=== PATIENT | male | born 1945 | race Caucasian/White ===

== ENCOUNTER → 2017-02-12 | Outpatient (CLI) | payer MEDICARE ==
[~2017-02-12] MED LIST: AMLO10TA82 PO; ASP325TEC PO; ATR20T PO; CHOL200025 PO; IBUP-30 PO; LEVO100C2 PO; MV-M1TAB3 PO; NFNEB10T PO; SILD25TA PO; TOLTA4 PO; UBID100C17 PO; VITA-198 PO
--- NOTE | 2017-02-12 15:14 | Diagnostic Imaging Report ---
INDICATION: Right hip pain. History of arthritis. COMPARISON: None. FINDINGS: AP view of the pelvis and two dedicated radiographic views of the right hip were obtained. There is no fracture, dislocation, bone destruction, or radiopaque foreign body. The visualized pelvic osseous structures and the SI joints demonstrate no acute fracture or dislocation. There is no bone destruction or radiopaque foreign body. The surrounding soft tissue structures are unremarkable. IMPRESSION: 1. Unremarkable radiographic exam of the pelvis and right hip. Dictated by: Dictated on workstation # [id number]
== END ==
LOC: RAD 14:20
PROVIDERS: ATTEND Family Medicine
DX: M25.551 Pain in right hip (principal)

== ENCOUNTER 2017-03-29 11:23 | Outpatient (RCR) | payer MEDICARE | END 2017-04-29 14:41 | disposition home or self-care (01) | PROVIDERS: ATTEND Family Medicine | DX: M62.838 Other muscle spasm (principal); Z98.890 Other specified postprocedural states ==

== ENCOUNTER → 2018-09-23 | Outpatient (CLI) | payer MEDICARE ==
--- NOTE | 2018-09-23 12:25 | Diagnostic Imaging Report ---
PROCEDURE: MRI lumbar spine. TECHNIQUE: Multiplanar, multisequence MRI of the lumbar spine was performed without contrast. INDICATION: Low back pain and sacral pain. Patient is status post lumbar spine surgery approximately 13 years ago. COMPARISON: Correlation is made with prior MRI of the lumbar spine from 09/22/2011. FINDINGS: Curvature of the lumbar spine is normal. There is minimal retrolisthesis of L5 on S1. The vertebral body heights are maintained. No acute compression fracture is seen. Marrow signal intensity appears to be stable. A rounded area of low signal intensity in L2 vertebral bodies is similar to prior exam. There is some mild generalized disc desiccation. Disc space narrowing at L5-S1 level is also seen, compatible with degenerative change. The conus is unremarkable at the L1 level. T12-L1: Central canal is widely patent. Neuroforamina are patent. L1-L2: Central canal is patent. Neuroforamina are patent. L2-L3: There is some ligamentous thickening. Central canal is widely patent. Neuroforamina are patent. L3-L4: There is ligamentous thickening but central canal is widely patent. Neuroforamina are patent. L4-L5: There is mild ligamentous thickening but central canal remains widely patent. There is mild bilateral neuroforaminal narrowing due to broad-based disc/osteophyte complex. L5-S1: Disc/osteophyte complex indents the ventral thecal sac. Central canal remains patent. There is moderate bilateral neuroforaminal narrowing due to broad-based disc/osteophyte complex. Previously noted probable disc extrusion on the right at this level is no longer visualized. Paraspinous tissues demonstrate a left renal cyst measuring 3.4 cm in size. IMPRESSION: Multilevel lumbar spondylosis. No central canal stenosis is seen. There is bilateral neuroforaminal narrowing at L5-S1, as described. No acute compression fracture is detected. Dictated by: Dictated on workstation # [id number]
== END ==
LOC: RAD 10:13
PROVIDERS: ATTEND Family Medicine
DX: M48.07 Spinal stenosis, lumbosacral region (principal); M47.816 Spondylosis without myelopathy or radiculopathy, lumbar region; R53.1 Weakness
CPT/HCPCS: 72148

== ENCOUNTER → 2019-03-15 | Outpatient (CLI) | payer MEDICARE ==
--- NOTE | 2019-03-15 10:28 | Diagnostic Imaging Report ---
PROCEDURE: US Gallbladder. TECHNIQUE: Multiple real-time grayscale images were obtained over the right upper quadrant in various projections. INDICATION: Right upper quadrant pain. FINDINGS: There is increased echogenicity of the liver, compatible with fatty infiltration. There is no obvious intrahepatic biliary ductal dilatation. Common bile duct is however obscured. There is no cholelithiasis or gallbladder wall thickening. There is some questionable trace pericholecystic fluid anterior to the gallbladder wall. The visualized portions of the pancreas are unremarkable. There are multiple cysts in the right kidney, largest measuring 4.2 cm. There is no ascites. IMPRESSION: 1. Fatty infiltration of the liver. 2. Questionable nonspecific pericholecystic fluid. 3. Right renal cysts. Dictated by: Dictated on workstation # [id number]
== END ==
LOC: RAD 09:08
PROVIDERS: ATTEND Nurse Practitioner Family
DX: N28.1 Cyst of kidney, acquired (principal); K76.0 Fatty (change of) liver, not elsewhere classified; R19.7 Diarrhea, unspecified
CPT/HCPCS: 76705

== ENCOUNTER 2019-03-18 21:15 | Observation (INO) | payer MEDICARE ==
[~2019-03-18] VITALS: Ht 172.7 cm; Wt 100.0 kg
--- NOTE | 2019-03-18 21:45 | NUR ---
RAMILA FRANKLIN admitted to room 421-1, with an admitting diagnosis of DEHYDRATION/NAUSEA/VOMITING, on 03/18/19 from DIRECT ADMIT FROM HOME via EMS, accompanied by EMT AND FAMILY.RAMILA FRANKLIN introduced to surroundings, call light, bed controls, phone, TV, temperature control, lights, meal times, smoking policy, visitor policy, side rail policy, bathrooms and showers.
[2019-03-18] MEDS ORDERED: LACTATED RINGERS 1,000 ML IV SCH (22:15)
[2019-03-18] MEDS ORDERED: PROMETHAZINE INJ 25 MG/ML (PHENERGAN) AMP IVP PRN (22:15)
--- NOTE | 2019-03-18 22:38 | NUR ---
PATIENT TO XRAY, ADMITTING PHYSICIAN REQUESTED THAT IT BE SENT TO [facility] TO BE READ
[2019-03-18] MEDS ORDERED: LIDOCAINE 4% (SALONPAS) PATCH ONE (22:39)
[2019-03-18] MEDS ORDERED: fentaNYL INJECTION 100 MCG/2 ML AMP IVP PRN (22:45)
[2019-03-18] MEDS: ONDANSETRON 4 MG/2 ML (SDV) Z0FRAN IVP PRN (22:47)
[2019-03-18 22:49] VITALS: BP 144/63
[2019-03-18] MEDS: LACTATED RINGERS 1,000 ML IV SCH (22:49)
[2019-03-18] MEDS: LIDOCAINE 4% (SALONPAS) PATCH TOP SCH (22:50)
[2019-03-18] MEDS ORDERED: LORazepam INJ 2 MG/ML (ATIVAN) VIAL IVP PRN (23:15)
[2019-03-18 23:47] LABS: BASOPHILS % (AUTO) 0 % (0-10); EOSINOPHILS % (AUTO) 0 % (0-10); HEMATOCRIT 42 % (40-54); HEMOGLOBIN 14.4 G/DL (13.3-17.7); LYMPHOCYTES # (AUTO) 0.6 X 10^3 (1.0-4.0); LYMPHOCYTES % (AUTO) 6 % (12-44); MEAN CORPUSCULAR HEMOGLOBIN 31 PG (25-34); MEAN CORPUSCULAR HGB CONC 35 G/DL (32-36); MEAN CORPUSCULAR VOLUME 89 FL (80-99); MEAN PLATELET VOLUME 10.1 FL (7.4-10.4); MONOCYTES # (AUTO) 0.5 X 10^3 (0.0-1.0); MONOCYTES % (AUTO) 5 % (0-12); NEUTROPHILS # (AUTO) 8.8 X 10^3 (1.8-7.8); NEUTROPHILS % (AUTO) 88 % (42-75); PLATELET COUNT 224 10^3/uL (130-400); RED CELL DISTRIBUTION WIDTH 13.4 % (10.0-14.5); WHITE BLOOD COUNT 10.1 10^3/uL (4.3-11.0)
[2019-03-18] MEDS: HYDROcodone/APAP 5 MG/325 MG (LORTAB) TAB PO PRN (23:47)
[2019-03-18] MEDS: MELATONIN 3 MG TABLET PO SCH (23:48)
[2019-03-19] VITALS: BP 131/74
[2019-03-19 00:01] LABS: ALBUMIN 4.1 GM/DL (3.2-4.5); BILIRUBIN,TOTAL 0.6 MG/DL (0.1-1.0); CALCIUM 9.4 MG/DL (8.5-10.1); CREATININE SERUM 1.3 MG/DL (0.60-1.30); POTASSIUM 4.1 MMOL/L (3.6-5.0); TOTAL PROTEIN 6.7 GM/DL (6.4-8.2)
[2019-03-19 00:12] LABS: BAND NEUTROPHILS 5 %; LYMPHOCYTES % (MANUAL) 5 %; MONOCYTES % (MANUAL) 5 %; NEUTROPHILS % (MANUAL) 85 %
[2019-03-19 00:13] LABS: RBC MORPH NORMAL
[2019-03-19 02:55] LABS: BILIRUBIN,URINE NEGATIVE (NEGATIVE); CLARITY,URINE CLEAR; COLOR,URINE YELLOW; GLUCOSE, URINE (UA) NEGATIVE (NEGATIVE); KETONES,URINE NEGATIVE (NEGATIVE); LEUKOCYTE ESTERASE ,URINE NEGATIVE (NEGATIVE); NITRITE,URINE NEGATIVE (NEGATIVE); PROTEIN,URINE TRACE (NEGATIVE)
[2019-03-19 03:03] LABS: BACTERIA,URINE NEGATIVE /HPF; SQUAMOUS EPITHELIAL CELL,UR 0-2 /HPF; WBC,URINE 0-2 /HPF
[2019-03-19 04:00] VITALS: BP 144/75
[2019-03-19] MEDS: LACTATED RINGERS 1,000 ML IV SCH ×3 (04:50→17:31)
--- NOTE | 2019-03-19 05:39 | Diagnostic Imaging Report ---
INDICATION: Nausea and vomiting. Dizziness. COMPARISON: 02/12/2017 FINDINGS: Supine and upright views of the abdomen show a nondistended bowel gas pattern. No abnormal air fluid levels or free intraperitoneal air is seen. Extraosseous calcifications are seen projecting over the bilateral kidneys. Largest is seen within the superior pole on the left and measures 7 to 8 mm in diameter. Bony and soft tissue structures are within normal limits. No organomegaly is identified. Accompanying upright chest shows normal heart size and pulmonary vascularity. The lungs are well aerated and clear. The mediastinum is normal in appearance. IMPRESSION: 1. No bowel obstruction or free air. 2. Normal chest. No pneumonia or pulmonary edema. 3. Bilateral nephrolithiasis. Dictated by: Dictated on workstation # [id number]
[2019-03-19 06:05] LABS: BASOPHILS % (AUTO) 0 % (0-10); EOSINOPHILS # (AUTO) 0.1 10^3/uL (0.0-0.3); EOSINOPHILS % (AUTO) 1 % (0-10); HEMATOCRIT 38 % (40-54); HEMOGLOBIN 12.8 G/DL (13.3-17.7); LYMPHOCYTES # (AUTO) 0.8 X 10^3 (1.0-4.0); LYMPHOCYTES % (AUTO) 11 % (12-44); MEAN CORPUSCULAR HEMOGLOBIN 30 PG (25-34); MEAN CORPUSCULAR HGB CONC 34 G/DL (32-36); MEAN CORPUSCULAR VOLUME 90 FL (80-99); MEAN PLATELET VOLUME 10.1 FL (7.4-10.4); MONOCYTES # (AUTO) 0.7 X 10^3 (0.0-1.0); MONOCYTES % (AUTO) 9 % (0-12); NEUTROPHILS # (AUTO) 6.2 X 10^3 (1.8-7.8); NEUTROPHILS % (AUTO) 79 % (42-75); PLATELET COUNT 200 10^3/uL (130-400); RED CELL DISTRIBUTION WIDTH 13.1 % (10.0-14.5); WHITE BLOOD COUNT 7.8 10^3/uL (4.3-11.0)
[2019-03-19 06:24] LABS: ALANINE AMINOTRANSFERASE 32 U/L (0-55); ALBUMIN 3.8 GM/DL (3.2-4.5); ALKALINE PHOSPHATASE 48 U/L (40-136); BILIRUBIN,TOTAL 0.6 MG/DL (0.1-1.0); BUN/CREATININE RATIO 20; CALCIUM 9.2 MG/DL (8.5-10.1); CARBON DIOXIDE 24 MMOL/L (21-32); CHLORIDE 105 MMOL/L (98-107); CREATININE SERUM 1.12 MG/DL (0.60-1.30); GFR ESTIMATED > 60; GLUCOSE 118 MG/DL (70-105); POTASSIUM 3.9 MMOL/L (3.6-5.0); SODIUM 140 MMOL/L (135-145); TOTAL PROTEIN 6.1 GM/DL (6.4-8.2)
[2019-03-19] MEDS: ONDANSETRON 4 MG/2 ML (SDV) Z0FRAN IVP PRN (06:43)
[2019-03-19] MEDS ORDERED: FLU QUADRIvalent (5+ YOA) 2019-2020 (AFLURIA) 0.5 ML IM ONE (07:00)
[2019-03-19 08:00] VITALS: BP 130/63
--- NOTE | 2019-03-19 08:10 | NUR ---
DR. FINCH CALLED IN RE: SALONPAS VS. VOLTAREN GEL. VOLTAREN GEL STARTED AT THIS TIME. SALONPAS DISCONTINUED BY THIS RN PER DR. FINCH.
[2019-03-19] MEDS: PANTOPRAZOLE 40 MG (PROTONIX) VIAL IV SCH ×2 (08:26→23:04)
[2019-03-19] MEDS: CHOLESTYRAMINE 4 GM (QUESTRAN LITE, PREVALITE) PKT PO SCH ×2 (08:26→23:28)
[2019-03-19] MEDS: LIDOCAINE 4% (SALONPAS) PATCH TOP SCH (08:29)
[2019-03-19] MEDS: DICLOFENAC 1% GEL 100 GM (VOLTAREN) TUBE TOP SCH ×4 (09:14→23:28)
--- NOTE | 2019-03-19 10:44 | HISTORY AND PHYSICAL ---
DATE OF SERVICE: ATTENDING PRIMARY CARE PHYSICIAN: Carol Sepulveda MD. HISTORY OF PRESENT ILLNESS: The patient is a 73-year-old male who was admitted for persistent nausea, vomiting, diarrhea and dehydration. This has been occurring for the past few weeks; however, became more severe in the past 4 to 5 days. On the day of admission, he did have several bouts of nausea and vomiting as well as diarrhea to the point where he felt weak and was clinically dehydrated. He was brought by EMS to the floor where his lab work was consistent with prerenal azotemia. His vital signs are stable. He reports that he has had issues with this nausea and vomiting for some time; however, this has worsened. He feels that the diarrhea has also been around for quite some time; however, he thought that this was medication related. He does not report any hematemesis, no coffee ground emesis. He also does not report any red blood per rectum nor any dark tarry stools. PAST MEDICAL HISTORY: Hypertension, syncopal episodes, urinary incontinence, degenerative joint disease. PAST SURGICAL HISTORY: Cervical spine open reduction and internal fixation in 2016 and lipoma excision right neck. ALLERGIES: No known drug allergies. MEDICATIONS: Aspirin 325 mg daily, amlodipine 10 mg daily, atorvastatin 20 mg daily, levothyroxine 100 mcg daily, tolterodine 4 mg daily. SOCIAL HISTORY: Negative smoke, negative alcohol. FAMILY HISTORY: Mother, ovarian cancer. Vital Signs: Temperature 36.9, blood pressure 130/63, pulse 70, respirations 18, pulse ox 93% on room air. REVIEW OF SYSTEMS: Well-nourished male in no acute distress. He does feel weak and does have some ataxia that he reports has been present since cervical spine surgery. Intermittent episodes of nausea and vomiting especially after eating, diarrhea with no red blood per rectum, no dark tarry stools. No fever, chills, no recent inadvertent weight loss. All other review of systems negative. PHYSICAL EXAMINATION: CHEST: Clear. Good breath sounds bilaterally. HEART: Regular, no murmurs. EXTREMITIES: +1/3 bilateral lower extremity edema, negative Homans sign. HEENT: No scleral icterus. NECK: No cervical lymphadenopathy. ABDOMEN: Soft, nontender, nondistended. No palpable masses. SKIN: Warm, dry. LABORATORY DATA: WBC 7.8, hemoglobin 12.8, hematocrit 38, platelets 200. Total bilirubin 0.6, AST 18, ALT 32, alkaline phosphatase 48. BUN is 22, creatinine 1.12. ASSESSMENT AND PLAN: A 73-year-old male with persistent nausea and vomiting, diarrhea and dehydration and syncopal episodes. His laboratory work is consistent with prerenal azotemia and he will require IV fluid hydration. He did undergo a recent ultrasound, which did not show any gallstones; however, his symptoms might be related to biliary dyskinesia and we will proceed with a HIDA scan. We will also send the stool for culture and sensitivity including Clostridium difficile. At this time, he does not have any signs of gastroesophageal reflux disease or peptic ulcer disease. If he does become anemic, he may need further evaluation with upper and lower endoscopy as well as biopsies as appropriate. Job ID: [id number] DocumentID: [id number] Dictated Date: 03/19/2019 10:01:12 Financial Advisor Date: 03/19/2019 10:43:55 Dictated By: MATHEUS FINCH MD
[2019-03-19 12:00] VITALS: BP 133/67
[2019-03-19] MEDS ORDERED: CHOL10003 PO (13:32)
[2019-03-19] MEDS ORDERED: ASPI-999 PO (13:32)
[2019-03-19] MEDS ORDERED: DICL35CA PO (13:43)
[2019-03-19] MEDS ORDERED: LEVO88TA54 PO (13:43)
[2019-03-19] MEDS ORDERED: METF-397 PO (13:43)
[2019-03-19] MEDS ORDERED: NEBI5TAB8 PO (13:43)
[2019-03-19] MEDS ORDERED: PANT40TA3 PO (13:43)
[2019-03-19] MEDS ORDERED: METR-145 PO (13:43)
[2019-03-19] MEDS ORDERED: OXYB5TAB9 PO (13:43)
[2019-03-19] MEDS ORDERED: PATIENT MAY USE OWN MEDS, ALL PO SCH (15:15)
[2019-03-19] MEDS ORDERED: ACETAMINOPHEN 325 MG TABLET PO PRN (15:15)
[2019-03-19] MEDS ORDERED: ONDANSETRON 4 MG (ZOFRAN) ORAL DISSOLVE TAB PO PRN (15:15)
--- NOTE | 2019-03-19 15:32 | Consultation - Hospitalist ---
HPI History of Present Illness: HPI/Chief Complaint Stef Knott is a 73yoM who presented with nausea and vomiting. He reports this has been an issue for some time now but yesterday was worse. This was associated with abdominal pain which has since improved. He also had an episode of diarrhea yesterday. He denies fevers and chills. He thinks it started after eating a meal from [employer]. He does not endorse chest pain or dyspnea. He reports having issues with short-term memory. He has not been drinking very much water lately. He feels much better today. He is joking and in good spirits. Date Seen 03/19/19 Attending Physician Cristy Ruiz MD PCP Carol Sepulveda MD Referring Physician Date of Admission Mar 18, 2019 at 21:48 Home Medications & Allergies Home Medications Reviewed patient Home Medication Reconciliation performed by pharmacy medication reconciliations digital imaging technician and/or nursing. Patients Allergies have been reviewed. Allergies Allergies Coded Allergies No Known Drug Allergies (Unverified10/23/11) Past Zfxvyzb-Uatkmz-Fxpqot Hx Past Med/Social Hx: Reviewed Nursing Past Med/Soc Hx Patient Social History Recent Foreign Travel: No Contact w/other who traveled: No Recent Infectious Disease Expo: No Immunizations Up To Date Date of Pneumonia Vaccine: Jan 31, 2013 Date of Influenza Vaccine: Jan 31, 2013 Family History FH: heart disease 19 FATHER FH: ovarian cancer 19 MOTHER Review of Systems Constitutional: no symptoms reported EENTM: no symptoms reported Respiratory: no symptoms reported Cardiovascular: no symptoms reported Gastrointestinal: diarrhea, nausea, vomiting Genitourinary: no symptoms reported Musculoskeletal: no symptoms reported Skin: no symptoms reported Psychiatric/Neurological: No Symptoms Reported Physical Exam Physical Exam Vital Signs Vital Signs - First Documented 03/18/19 22:49 Temp 37.1 Pulse 98 Resp 20 B/P (MAP) 144/63 Pulse Ox 95 O2 Delivery Room Air Capillary Refill : Height, Weight, BMI Height: '" Weight: 220lbs. oz. 99.823770qg; 33.72 BMI Method: General Appearance: No Apparent Distress, WD/WN HEENT: Moist Mucous Membranes, Other (EOMI, wearing glasses) Neck: Normal Inspection, Supple Respiratory: Lungs Clear, Normal Breath Sounds, No Respiratory Distress Cardiovascular: Regular Rate, Rhythm, No Edema, No Murmur Gastrointestinal: Normal Bowel Sounds, Non Tender, Soft; No Distended, No Guarding, No Rebound; Other (negative Trevino sign) Back: Normal Inspection, Other (cervical surgical scar posteriorly) Extremity: Normal Inspection, Non Tender, No Pedal Edema Neurologic/Psychiatric: Alert, Oriented x3, No Motor/Sensory Deficits, Normal Mood/Affect Skin: Normal Color, Warm/Dry Lymphatic: No Adenopathy Results Results/Procedures Labs Laboratory Tests 03/18/19 23:36 03/19/19 05:50 Patient resulted labs reviewed. Imaging: Reviewed Imaging Report Assessment/Plan Assessment and Plan Assess & Plan/Chief Complaint Nausea and vomiting Diarrhea Abdominal pain Acute kidney injury -Food poisoning vs gastroenteritis vs cholelithiasis -N/V resolved -AXR without obstruction -Antiemetics ordered -No further diarrhea -C diff and stool culture ordered -Surgery primary, planning for HIDA tomorrow -Cr mildly elevated on admission, trending down -Continue IV fluids HTN Hypothyroidism -Continue home meds DVT Prophylaxis: SCDs, ambulation Diagnosis/Problems Diagnosis/Problems (1) Nausea & vomiting Status: Resolved Resolution Date/Time: 03/19/19 @ 15:38 (2) Diarrhea Status: Resolved Resolution Date/Time: 03/19/19 @ 15:38 (3) Abdominal pain Status: Resolved Resolution Date/Time: 03/19/19 @ 15:38 (4) JIMBO (acute kidney injury) Status: Resolved Resolution Date/Time: 03/19/19 @ 15:38 (5) HTN (hypertension) Status: Chronic Qualifiers: Hypertension type: essential hypertension Qualified Codes: I10 - Essential (primary) hypertension (6) Hypothyroidism Status: Chronic Clinical Quality Measures DVT/VTE Risk/Contraindication: Risk Factor Score Per Nursin RFS Level Per Nursing on Admit: 3=High JESSIE HEATH MD Mar 19, 2019 15:32 POS
[2019-03-19 16:00] VITALS: BP 143/65
--- NOTE | 2019-03-19 18:21 | NUR ---
PATIENT OFFERED BARBER CATHETER PER DR. FINCH'S ORDERS, AT THIS TIME HE DECLINED TO HAVE ONE PLACED. ORDERS FOR BARBER CATHETER LEFT ON PATIENT CHART IN CASE HE CHANGES HIS MIND.
[2019-03-19] MEDS: 1/2 NS W/KCL 20 MEQ/L 1,000 ML IV SCH (18:37)
[2019-03-19 20:00] VITALS: BP 162/77
[2019-03-19] MEDS: HYDROcodone/APAP 5 MG/325 MG (LORTAB) TAB PO PRN (23:04)
[2019-03-19] MEDS: CARVEDILOL 12.5 MG (COREG) TABLET PO SCH (23:05)
[2019-03-19] MEDS: MELATONIN 3 MG TABLET PO SCH (23:27)
[2019-03-20 00:14] VITALS: BP 140/79
[2019-03-20] MEDS ORDERED: LEVOTHYROXINE 88 MCG (LEVOTHORID) TAB PO SCH (06:30)
[2019-03-20 06:43] VITALS: BP 152/81
[2019-03-20 08:00] VITALS: BP 172/91
[2019-03-20 08:28] LABS: BUN/CREATININE RATIO 13; CARBON DIOXIDE 26 MMOL/L (21-32); CHLORIDE 105 MMOL/L (98-107); GFR ESTIMATED > 60; GLUCOSE 127 MG/DL (70-105); POTASSIUM 4.3 MMOL/L (3.6-5.0); SODIUM 139 MMOL/L (135-145)
--- NOTE | 2019-03-20 08:29 | Progress Note - Hospitalist ---
RAQUEL COMBS [facility] 03/20/19 0829: Subjective HPI/CC On Admission Date Seen by Provider: Mar 20, 2019 Time Seen by Provider: 07:40 Stef Knott is a 73yoM who presented with nausea and vomiting. He reports this has been an issue for some time now but yesterday was worse. This was associated with abdominal pain which has since improved. He also had an episode of diarrhea yesterday. He denies fevers and chills. He thinks it started after eating a meal from [employer]. He does not endorse chest pain or dyspnea. He reports having issues with short-term memory. He has not been drinking very much water lately. He feels much better today. He is joking and in good spirits. Subjective/Events-last exam Patient was comfortable and pleasant this morning. Patient did request the use of diaper due to the inability to control his bladder. Stated that he was getting pumped with some much fluid that he didn't think he'd be able to stop himself from wetting the bed. The patient's stated that he has not been able to take his incontinence medicine for the past few days. He also stated that all the symptoms that he felt on admission have subsided, believing that his sickness was due to something that he ate. Patient did comment on not sleeping well because of the bed. He states that he is getting a HIDA scan, but has no symptoms of cholecystitis. The stated that he had a sonogram performed and that it show fatty liver. Review of Systems General: No Chills, No Night Sweats, No Fatigue, No Malaise, No Appetite, No Other HEENT: No Head Aches, No Visual Changes, No Eye Pain, No Ear Pain, No Dysphasia, No Sinus Congestion, No Post Nasal Drip, No Sore Throat, No Other Pulmonary: No Dyspnea, No Cough, No Pleuritic Chest Pain, No Other Cardiovascular: No: Chest Pain, Palpitations, Orthopnea, Paroxysmal Noc. Dyspnea, Edema, Lt Headedness, Other Gastrointestinal: No: Nausea, Vomiting, Abdominal Pain, Diarrhea, Constipation, Melena, Hematochezia, Other Genitourinary: No Dysuria, No Frequency; Incontinence; No Hematuria, No Retent ion, No Other Musculoskeletal: No: other, neck pain, shoulder pain, arm pain, back pain, hand pain, leg pain, foot pain Neurological: No: Weakness, Numbness, Incoordination, Change in speech, Confusion, Seizures, Other Focused Exam Respiratory: Chest Non Tender, Lungs Clear, Normal Breath Sounds, No Accessory Muscle Use, No Respiratory Distress Cardiovascular: Regular Rate, Rhythm, No Edema, No Gallop, No JVD, No Murmur, Normal Peripheral Pulses Peripheral Pulses: 2+ Dorsalis Pedis (R), 2+ Left Dors-Pedis (L), 2+ Radial Pulses (R), 2+ Radial Pulses (L) Skin: normal color, warm/dry Objective Exam Vital Signs Vital Signs Date Time Temp Pulse Resp B/P (MAP) Pulse Ox O2 Delivery O2 Flow Rate FiO2 03/20/19 06:43 36.7 74 20 152/81 (104) 92 Room Air Capillary Refill : General Appearance: No Apparent Distress, WD/WN Neck: Full Range of Motion, Normal Inspection, Non Tender, Supple Respiratory: Chest Non Tender, Lungs Clear, Normal Breath Sounds, No Accessory Muscle Use, No Respiratory Distress Cardiovascular: Regular Rate, Rhythm, No Edema, No Gallop, No JVD, No Murmur, Normal Peripheral Pulses Gastrointestinal: Normal Bowel Sounds, No Organomegaly, No Pulsatile Mass, Non Tender, Soft Extremity: Normal Capillary Refill, Normal Inspection, Normal Range of Motion, Non Tender, No Calf Tenderness, No Pedal Edema Neurologic/Psychiatric: Alert, Oriented x3, No Motor/Sensory Deficits, Normal Mood/Affect Skin: Normal Color, Warm/Dry Lymphatic: No Adenopathy Results/Procedures Lab Patient resulted labs reviewed. Imaging: Reviewed Imaging Report Assessment/Plan Assessment and Plan Assess & Plan/Chief Complaint Assessment: 1. Dehydration:IVF and monitor labs 2. Incontinence: start up home meds again to decrease the possiblity of wetting self 3. Fatty Liver: - Cholecystitis: HIDA scan to rule out. - Continue Cholestyramine Clinical Quality Measures DVT/VTE Risk/Contraindication: Risk Factor Score Per Nursin RFS Level Per Nursing on Admit: 3=High ONOFRE SANCHEZ MD 03/20/19 0926: Subjective HPI/CC On Admission Time Seen by Provider: 08:30 STEF PRESENTED TO THE HOSPITAL FOR NAUSEA, VOMITING AND DIARRHEA. Subjective/Events-last exam STEF PRESENTED TO THE HOSPITAL WITH NAUSEA, VOMITING AND DIARRHEA. HE REPORTS THAT HE ATE A [employer] AND FELT SICK TO HIS STOMACH A WHILE AFTER THE MEAL. HE STATES THAT HE THEN HAD NAUSEA WITH EMESIS AND PASSED OUT AND THEN HAD DIARRHEA WELL. RUMA REPORTS THAT SHE THINKS THIS IS FOOD RELATED (PARTIALLY) SHE ALSO HAD AN UPSET STOMACH AFTER EATING AT [employer]. HE HAD SOME NAUSEA THIS MORNING, BUT HAS NOT HAD DIARRHEA SINCE YESTERDAY. HE DENIES ANY CURRENT CHEST PAIN, SHORTNESS OF BREATH, ABDOMINAL PAIN, BUT DOES FEEL BLOATED. Review of Systems General: No Chills, No Night Sweats, No Fatigue, No Malaise HEENT: No Dysphasia Pulmonary: No Dyspnea, No Cough Cardiovascular: No: Chest Pain, Palpitations Gastrointestinal: Nausea; No: Vomiting, Abdominal Pain, Diarrhea Neurological: No: Weakness, Confusion Objective Exam General Appearance: No Apparent Distress, WD/WN HEENT: PERRL/EOMI, Pharynx Normal Neck: Supple Respiratory: Chest Non Tender, Lungs Clear, Normal Breath Sounds Cardiovascular: Regular Rate, Rhythm, No Edema Gastrointestinal: Normal Bowel Sounds, No Organomegaly, No Pulsatile Mass, Non Tender, Soft Rectal: Deferred Back: Other (POST SURGICAL CHANGES OF POSTERIOR NECK) Extremity: Normal Capillary Refill, Non Tender, No Calf Tenderness, No Pedal Edema Neurologic/Psychiatric: Alert, Oriented x3, No Motor/Sensory Deficits, Normal Mood/Affect Skin: Normal Color, Warm/Dry Lymphatic: No Adenopathy Results/Procedures Imaging: Reviewed Imaging Report Assessment/Plan Assessment and Plan Assess & Plan/Chief Complaint NAUSEA EMESIS DIARRHEA DEHYDRATION HYPERTENSION INCONTINENCE HYPOTHYROIDISM NAUSEA WITH EMESIS AND DIARRHEA - DISCUSSED CASE WITH PT - CONTINUE WITH FLUIDS, PRN NAUSEA MEDICATION WILL BE WAITING ON HIDA SCAN REPORT. - IF HE NEEDS SURGERY - HIS FAMILY WOULD LIKE TO HAVE HIM GO TO DR. CHANEY AN OUTPATIENT. DEHYDRATION - IMPROVED WITH IV FLUIDS HYPERTENSION - WILL RESUME HOME REGIMEN ONCE ABLE TO TAKE PO MEDS AFTER HIS HIDA SCAN INCONTINENCE - CHRONIC - WILL OFFER SUPPORTIVE CARE AT THIS TIME AND RESTART HOME REGIMEN ONCE ABLE TO TAKE PO HYPOTHYROIDISM - WILL RESTART MEDS OUTPATIENT ANTICIPATE THAT STEF SHOULD BE ABLE TO GO HOME TODAY IF THIS IS HIS GALLBLADDER, HE SHOULD BE ABLE TO HAVE THE SURGERY AN OUTPATIENT IN [place] WITH DR. CHANEY (PER HIS REQUEST). Supervisory-Addendum Brief Verification & Attestation Participated in pt care: history, MDM, physical Personally performed: exam, history, MDM Care discussed with: Medical Student Procedures: n/a Results interpretation: Verified all documentation I PERSONALLY EVALUATED THE PATIENT, DISCUSSED HIS CASE/CARE WITH THE MEDICATION STUDENT, THE PATIENT AND HIS . SEE DOCUMENTATION RAQUEL COMBS Mar 20, 2019 08:29 ONOFRE LOPEZ MD Mar 20, 2019 09:26 POS
[2019-03-20] MEDS ORDERED: PANT40TA2 PO (08:35)
[2019-03-20] MEDS: CHOLESTYRAMINE 4 GM (QUESTRAN LITE, PREVALITE) PKT PO SCH (08:43)
[2019-03-20] MEDS: CARVEDILOL 12.5 MG (COREG) TABLET PO SCH (08:43)
[2019-03-20] MEDS: PANTOPRAZOLE 40 MG (PROTONIX) VIAL IV SCH (08:43)
[2019-03-20] MEDS: DICLOFENAC 1% GEL 100 GM (VOLTAREN) TUBE TOP SCH ×2 (08:44→13:16)
[2019-03-20] MEDS ORDERED: THYR120T2 PO (09:18)
[2019-03-20] MEDS ORDERED: ATOR20TA66 PO (09:18)
[2019-03-20] MEDS ORDERED: B12/1TAB PO (09:18)
--- NOTE | 2019-03-20 11:59 | NUR ---
"RD ASSESSMENT PMHx: HTN PT INTERACTION: Pt was awake and pleasant during nutrition assessment. Pt states current appetite is poor and has been for the past few days prior to admit. Note pt avg PO intake of >75% x2d, per chart review. Pt staes following a regular diet at home, and has no current issues with chewing/swallowing food. Pt states having episodes of nausea and vomiting for the past several days, but no episodes since 03/18. Pt states having episodes of diarrhea over the last two weeks. Note no BM has been recorded, and pt not currently on bowel regimen, per chart review. Pt states no recent wt changes. Note unable to do determine recent wt hx, per chart review. ABNORMAL NUTRITION-RELATED LAB VALUES: glu 127 (H) Est. kcal needs: 9036-3282 kcal | 15-20 kcal/kg Est. Pro needs: 80-100 g Pro | 0.8-1.0 g Pro/kg PES STATEMENT: Inadequate oral intake (NI-2.1) related nausea | vomiting | loss of appetite as evidenced by pt interview INTERVENTION: Continue with current diet order of Restricted Fat (<30% kcal) diet. Pt may benefit from nutrition supplementation if PO intake declines. Will continue to follow and reassess as pt needs and status change. MONITOR/EVALUATE: PO Intake; Plan of Care; Hydration Status; Weight Status; Lab Values Geri Lambert, , RD, LD"
--- NOTE | 2019-03-20 13:19 | Diagnostic Imaging Report ---
INDICATION: Postprandial nausea and vomiting. Patient was administered 5.0 mCi technetium 99m Choletec intravenously and imaging over the abdomen was performed. After 60 minutes patient ingested one can of Ensure and a gallbladder ejection fraction was calculated. Homogeneous uptake of activity by the liver is seen. There is prompt excretion of activity into the common duct and gallbladder. Normal passage of activity into the small bowel is seen. Gallbladder ejection fraction is normal at 42%. IMPRESSION: Normal HIDA scan and gallbladder ejection fraction. Dictated by: Dictated on workstation # [id number]
--- NOTE | 2019-03-20 13:32 | Discharge Inst-Surgical ---
D/C Lap Instructions-KIDO New, Converted, or Re-Newed RX: RX on Chart Will call for follow up. Activity as tolerated High Fiber Diet 25g or more per day Avoid Alcohol, Caffeine, Spicy Rosine and Acid foods. Drink 64 fluid oz or more of fluids per day. Symptoms to Report: Fever over 101 degree F, Nausea/Vomiting If any problems/questions: Contact your physician or go to Emergency Room MATHEUS FINCH MD Mar 20, 2019 13:32 POS
[2019-03-20] MEDS: 1/2 NS W/KCL 20 MEQ/L 1,000 ML IV SCH (13:46)
== END 2019-03-20 13:51 | disposition home or self-care (01) ==
LOC: 4TH 21:45 → UNDOADMOB 21:48 → 4TH 21:48 → UNDODISOB 03-20 14:15
PROVIDERS: ADMIT Surgery; ATTEND Surgery
DX: E86.0 Dehydration (principal); R11.2 Nausea with vomiting, unspecified; R19.7 Diarrhea, unspecified; K76.0 Fatty (change of) liver, not elsewhere classified; R32 Unspecified urinary incontinence; I10 Essential (primary) hypertension; E03.9 Hypothyroidism, unspecified; N17.9 Acute kidney failure, unspecified; R55 Syncope and collapse; Z79.82 Long term (current) use of aspirin; Z79.899 Other long term (current) drug therapy; Z82.49 Family history of ischemic heart disease and other diseases of the circulatory system; Z80.41 Family history of malignant neoplasm of ovary
CPT/HCPCS: 36415; 74022; 78227; 80048; 80053; 81000; 83690; 85007; 85025; 85027; 90471; 99211; G0378

== ENCOUNTER 2021-05-07 12:06 | Outpatient (RCR) | payer MEDICARE ==
[~2021-05-07 12:06] MED LIST changes: +ASPI-999 PO; +ATOR20TA66 PO; +B12/1TAB PO; +CHOL10003 PO; +DICL35CA PO; +LEVO88TA54 PO; +METF-397 PO; +METR-145 PO; +NEBI5TAB8 PO; +OXYB5TAB13 PO; +PANT40TA2 PO; +PANT40TA52 PO; +THYR120T2 PO
== END 2021-06-02 | disposition home or self-care (01) ==
LOC: CARD 12:06
PROVIDERS: ATTEND Nurse Practitioner Family
DX: I95.9 Hypotension, unspecified (principal); R55 Syncope and collapse; Z53.9 Procedure and treatment not carried out, unspecified reason

== ENCOUNTER → 2021-07-25 | Outpatient (CLI) | payer MEDICARE ==
[2021-07-25 08:46] LABS: HEMATOCRIT 42 % (40-54); HEMOGLOBIN 14.2 g/dL (13.3-17.7); MEAN CORPUSCULAR HEMOGLOBIN 31 pg (25-34); MEAN CORPUSCULAR HGB CONC 34 g/dL (32-36); MEAN CORPUSCULAR VOLUME 90 fL (80-99); MEAN PLATELET VOLUME 9.9 fL (9.0-12.2); PLATELET COUNT 210 10^3/uL (130-400); WHITE BLOOD COUNT 6.7 10^3/uL (4.3-11.0)
[2021-07-25 08:59] LABS: ALBUMIN 4.1 GM/DL (3.2-4.5)
[2021-07-25 09:00] LABS: CALCIUM 9.6 MG/DL (8.5-10.1)
[2021-07-25 09:01] LABS: TOTAL PROTEIN 7.1 GM/DL (6.4-8.2)
[2021-07-25 09:03] LABS: BILIRUBIN,TOTAL 0.6 MG/DL (0.1-1.0)
[2021-07-25 09:05] LABS: CREATININE SERUM 1.13 MG/DL (0.60-1.30)
== END ==
LOC: LAB 08:24
PROVIDERS: ATTEND Internal Medicine Cardiovascular Disease
DX: I25.10 Atherosclerotic heart disease of native coronary artery without angina pectoris (principal); I10 Essential (primary) hypertension; R55 Syncope and collapse
CPT/HCPCS: 36415; 80053; 80061; 84443; 85027

== ENCOUNTER → 2021-07-30 | Outpatient (CLI) | payer MEDICARE ==
[~2021-07-30] MED LIST changes: +CATHETER FLUSH 10 ML SYR IVP PRN
[2021-07-30 15:16] VITALS: BP 161/78
--- NOTE | 2021-07-30 15:16 | Cardiology Stress Test Report ---
Stress Test Report Date of Procedure/Referring: Date of Procedure: Jul 30, 2021 PCP Chivo Conteh MD Admitting Physician Carol Sepulveda MD Indications: HTN Baseline Heart Rate: 67 Baseline Blood Pressure: Blood Pressure Systolic: 161 Blood Pressure Diastolic: 78 Baseline EKG: Baseline EKG: NSR Summary: After explaining the procedure and details to the patient, he signed the consent and was brought to the stress nuclear laboratory. Patient exercised on standard Can protocol, EKG, heart rate and blood pressure were monitored continuously, resting and stress doses of radio tracer were injected, imaging was acquired and reviewed in the short axis, horizontal long axis and vertical long axis views Patient was able to exercise for a total of 5 minutes on Can protocol, METs 7 Maximum heart rate 121 Maximum blood pressure 225/96 Stress EKG, Minimal nondiagnostic changes Recovery EKG, Return to baseline TID: 1.03 SSS: 0 SDS: 0 EF: 66 Conclusion: 1. Fair exercise tolerance for 5 minutes on standard Can protocol, 7 METS achieving 84% of maximal expected heart rate 2. Appropriate heart rate response to exercise with hypertensive response to exercise peak blood pressure 225/96 return to baseline during recovery 3. Nondiagnostic EKG changes with exercise return to baseline during recovery 4. No significant ischemia or infarction on SPECT images 5. Normal left ventricular size, EF 66% CHIVO CONTEH MD Jul 30, 2021 15:16
== END ==
LOC: CARD 10:30
PROVIDERS: ATTEND Internal Medicine Cardiovascular Disease
DX: I11.9 Hypertensive heart disease without heart failure (principal); I25.10 Atherosclerotic heart disease of native coronary artery without angina pectoris; R55 Syncope and collapse
CPT/HCPCS: 78452; 93017; 93306; A9502

== ENCOUNTER → 2023-02-08 | Outpatient (CLI) | payer MEDICARE ==
[~2023-02-08] MED LIST changes: -CATHETER FLUSH 10 ML SYR IVP PRN; +GADOTERATE 0.5 MMOL/ML (CLARISCAN) 20 ML VIAL IV ONE
--- NOTE | 2023-02-08 12:22 | Diagnostic Imaging Report ---
PROCEDURE: MR imaging of the brain with and without contrast. TECHNIQUE: Multiplanar, multisequence MR imaging of the brain was performed with and without contrast. INDICATION: Possible pineal mass. COMPARISON: Brain MRI on 05/16/2015. FINDINGS: No acute infarct. No acute or chronic hemorrhage. Extensive focal and confluent T2/FLAIR hyperintense signal within the periventricular and subcortical white matter. Mild atherosclerosis of ventricles and cortical sulci. No midline shift or mass effect. No abnormal enhancement. The sella and pituitary gland are normal. The pineal gland is normal. IMPRESSION: No acute infarct, hemorrhage, or hydrocephalus. No mass or abnormal enhancement. Normal appearance of the pineal gland. Extensive chronic small vessel ischemic disease. Mild global volume loss. Dictated by: Dictated on workstation # [id number]
== END ==
LOC: RAD 09:48
PROVIDERS: ATTEND Family Medicine
DX: R41.3 Other amnesia (principal); R26.81 Unsteadiness on feet
CPT/HCPCS: 70553